=== PATIENT | male | born 1955 | race Caucasian/White ===

== ENCOUNTER 2019-05-12 13:39 | Outpatient (CLI) | payer OTHER, SELFPAY ==
--- NOTE | 2019-05-12 13:21 | DI.US_ITS ---
EXAM: US LOWER EXTREMITY VENOUS RT CLINICAL HISTORY: RT LEG/ANKLE SWELLING, ? DVT TECHNIQUE: Ultrasound performed using standard protocol. COMPARISON: No exams were available for comparison FINDINGS: Duplex venous ultrasound of the right lower extremity was performed according to the usual protocol. Deep drains are freely compressible throughout and there is normal flow augmentation with manual billie f compression. No visible thrombus. No Thornton cyst. No superficial thrombus. IMPRESSION: Negative DVT ultrasound right lower extremity.
== END 2019-05-12 13:59 ==
PROVIDERS: PCP Physician Assistant Surgical; Visit Provider Physician Assistant Surgical
DX: M25.571 Pain in right ankle and joints of right foot (principal); R22.41 Localized swelling, mass and lump, right lower limb; M79.661 Pain in right lower leg
CPT/HCPCS: 93971

== ENCOUNTER 2022-02-05 17:57 | Outpatient (REF) | payer MEDICARE, SELFPAY ==
[2022-02-05 15:54] LABS: ALT 30 U/L (16-63); AST 19 U/L (15-37); Albumin 3.8 g/dL (3.4-5.0); Alkaline Phosphatase 64 U/L (46-116); Anion Gap 7.2 mmol/L (3-11); BUN 16 mg/dL (7-18); Bilirubin, Total 0.7 mg/dL (0.2-1.0); CO2 30.8 mmol/L (21.0-32.0); Calcium 8.9 mg/dL (8.5-10.1); Calculated LDL 152 mg/dL (<100); Chloride 105 mmol/L (98-107); Cholesterol 256 mg/dL (<200); Glucose 96 mg/dL (74-106); HDL Cholesterol 55 mg/dL (40-60); Potassium 4.2 mmol/L (3.5-5.1); Sodium 143 mmol/L (136-145); Total Protein 7.1 g/dL (6.4-8.2); Triglyceride 248 mg/dL (<150)
--- OUTSIDE RECORDS SUMMARY | 2022-02-05 18:03 | XMS_ITS | Encounter Summary ---
:1955 Author Organization [facility] [place] [address] Care Team Providers Name Role Phone None Primary Care Provider Unavailable Reason for Visit Reason Onset Date Comments Medication Refill 08/18/2019 Encounter Details Date Type Department Care Team Description 08/18/2019 Refill Pain and Spine [facility]ong [place] [facility] Eloy Mo PA [facility] [place] [address] [place] [address] [phone] (Wo rk) Social History Tobacco Use Types Packs/Day Years Used Date Never Smoker Smokeless Tobacco: Never Used Sex Assigned at Date Recorded Not on file documented as of this encounter Plan of Treatment Upcoming Encounters Date Type Specialty Care Team Description 04/11/2022 Office Visit Urology Parveen Gonzalez MD [facility] UROLOGSteven [place], [place] [address] (Wo rk) documented as of this encounter Visit Diagnoses Not on filedocumented in this encounter Care Teams Tool Designer Apprentice Relationship Specialty Start Date End Date None PCP - General 03/04/19 None documented as of this encounter
--- OUTSIDE RECORDS SUMMARY | 2022-02-05 18:03 | XMS_ITS | Encounter Summary ---
:1955 Author Organization [facility] [place] [address] Care Team Providers Name Role Phone None Primary Care Provider Unavailable Reason for Visit Reason Comments Follow-up Back Pain Encounter Details Date Type Department Care Team Description 04/23/2019 Office Visit [facility] Eloy Mo S/P lumbar discectomy; at [facility] RAO Da Silva Acute right lumbar radiculopathy [facility] [address] [place], [place] [phone] Social History Tobacco Use Types Packs/Day Years Used Date Never Smoker Smokeless Tobacco: Never Used Sex Assigned at Date Recorded Not on file documented as of this encounter Progress Notes Eloy Mo PA - 04/23/2019 1:40 PM EDT Apollo Ortiz is a 64-year-old gentleman over 8 weeks out from rather significant back pain with right leg pain and paresthesia in the context of some radicular pain from a prior L3-L4 discectomy. Apollo has been doing better than before from when his symptoms began about 2 months ago. He still notices characteristically that during the morning, he is having a lot of difficulties withpain that is fairly sharp on his back and right leg and this can subside after about 20 to 30 minutes of him being able to move around and walk. He tells me even increase his gabapentin to 600 mg at bedtime but even that was not making a massivedifference. Even diclofenac has not been helping him drastically at this point. Otherwise he tells me he was able to play 4 rounds of golf without much difficulty which is a good improvement for him, and he tells me that he actually walks about 6 miles a day now doing to mild sports at the time. We discussed natural history of persistent lumbar radicular pain following a lumbar discectomy. I discussed with Apollo options to manage his symptoms here. We will proceed as follows and plan 1. Discontinue diclofenac and start Celebrex 100 mg once to twice daily as needed 2. Oral steroids have been the most effective for Apollo. We will reserve using this option again oncehe gets close to his trip to [place] in about 3 weeks time. He will also let our office know around the time about refilling his gabapentin so he has enough for his trip. 3. We did discuss contingency of lumbar epidural steroid injection but he would like to hold off on that and I think that is reasonable. I advised him that I am much more pleased by his progress and I hope that he continues to manage well moving forward. documented in this encounter Plan of Treatment Upcoming Encounters Date Type Specialty Care Team Description 04/11/2022 Office Visit Urology Parveen Gonzalez MD [facility] [address], [place] [address] (Wo rk) documented as of this encounter Visit Diagnoses Diagnosis S/P lumbar discectomy Other postprocedural status Acute right lumbar radiculopathy Thoracic or lumbosacral neuritis or radi culitis, unspecified documented in this encounter Care Teams Restoration Officer Relationship Specialty Start Date End Date None PCP - General 03/04/19 None documented as of this encounter
--- OUTSIDE RECORDS SUMMARY | 2022-02-05 18:03 | XMS_ITS | Encounter Summary ---
:1955 Author Organization [facility] [place] [address] Care Team Providers Name Role Phone None Primary Care Provider Unavailable Reason for Visit Reason Onset Date Comments Medication Refill 06/16/2019 Encounter Details Date Type Department Care Team Description 06/16/2019 Refill Pain [facility] Spine [facility]ong [place] [facility] Eloy Mo [place] [address] [place] [address] [phone] (Wo rk) Social History Tobacco Use Types Packs/Day Years Used Date Never Smoker Smokeless Tobacco: Never Used Sex Assigned at Date Recorded Not on file documented as of this encounter Plan of Treatment Upcoming Encounters Date Type Specialty Care Team Description 04/11/2022 Office Visit Urology Parveen Gonzalez MD [facility] UROLOGSteven [place], [place] [address] (Wo rk) documented as of this encounter Visit Diagnoses Not on filedocumented in this encounter Care Teams Customer Resolution Specialist Relationship Specialty Start Date End Date None PCP - General 03/04/19 None documented as of this encounter
--- OUTSIDE RECORDS SUMMARY | 2022-02-05 18:03 | XMS_ITS | Encounter Summary ---
:1955 Author Organization [facility] [place] [address] Care Team Providers Name Role Phone None Primary Care Provider Unavailable Reason for Visit Reason Onset Date Comments Medication Refill 07/08/2019 Encounter Details Date Type Department Care Team Description 07/08/2019 Refill Pain and Spine Raymond chong [place] [facility] Eloy Mo PA [facility] [place] [address] [place] [address] [phone] (Wo rk) Social History Tobacco Use Types Packs/Day Years Used Date Never Smoker Smokeless Tobacco: Never Used Sex Assigned at Date Recorded Not on file documented as of this encounter Plan of Treatment Upcoming Encounters Date Type Specialty Care Team Description 04/11/2022 Office Visit Urology Parveen Gonzalez MD [facility] UROLOGSteven [place], [place] [address] (Wo rk) documented as of this encounter Visit Diagnoses Not on filedocumented in this encounter Care Teams Retort Loader Relationship Specialty Start Date End Date None PCP - General 03/04/19 None documented as of this encounter
--- OUTSIDE RECORDS SUMMARY | 2022-02-05 18:03 | XMS_ITS | Encounter Summary ---
:1955 Author Organization [facility] [place] [address] Care Team Providers Name Role Phone None Primary Care Provider Unavailable Reason for Visit Reason Onset Date Comments Medication Refill 04/07/2019 Encounter Details Date Type Department Care Team Description 04/07/2019 Refill Pain and Spine Raymond chong at [facility] Carolina Dowling, [place] [address] Social History Tobacco Use Types Packs/Day Years Used Date Never Smoker Smokeless Tobacco: Never Used Sex Assigned at Date Recorded Not on file documented as of this encounter Miscellaneous Notes Telephone Encounter - Carolina Dowling, RN - 04/07/2019 10:14 AM EDT Patient returned call as requested yesterday by Anika (Anika had called pt in re to incoming RX request vis [facility]). Explained to pt that we need to talk with him personally prior to doig any refills to clearly understand his dosing, Response, and tolerance. Pt reports he is using 300 mg Gabapentin capsules; he is taking 1 capsule in the AM; 1 capsule mid day, and 2 capsules at HS (the upper limit as authorized by Mr Mo). Pt states this gabapentin dose, combined with his diclofenac is very well tolerated and providing good symptom mgmt. Pt interestedin continuing this dose given its tolerance and effectiveness;. Pt reports having ~ 1 day supply remaining. Informed pt that I would update Eloy; if gabapentin script authorized (as expected) I would call to advise him he is all set. Script pended to be sent electronically to [facility] [place] Call returned to pt advising him that script was sent electronically to his preferred pharmacy as discussed. Pt aware of dosing and med use. documented in this encounter Plan of Treatment Upcoming Encounters Date Type Specialty Care Team Description 04/11/2022 Office Visit Urology Parveen Gonzalez MD [facility] UROLOGSteven [place], [place] [address] (Wo rk) documented as of this encounter Visit Diagnoses Not on filedocumented in this encounter Care Teams Mother Repairer Relationship Specialty Start Date End Date None PCP - General 03/04/19 None documented as of this encounter
--- OUTSIDE RECORDS SUMMARY | 2022-02-05 18:03 | XMS_ITS | Encounter Summary ---
:1955 Author Organization [facility] [place] [address] Care Team Providers Name Role Phone None Primary Care Provider Unavailable Reason for Visit Reason Onset Date Comments Medication Refill 07/08/2019 Encounter Details Date Type Department Care Team Description 07/08/2019 Refill [place] [facility] [place] Mo PA [facility] [place] [address] [place] [address] [phone] (Wo rk) Social History Tobacco Use Types Packs/Day Years Used Date Never Smoker Smokeless Tobacco: Never Used Sex Assigned at Date Recorded Not on file documented as of this encounter Miscellaneous Notes Telephone Encounter - Carolina Dowling RN - 07/08/2019 12:26 PM EST Called pt in response to incoming RX request for Gab[facility]. Advised pt hat I was calling to check in as our records indicated he had a refill of both meds at [facility] in [facility]. Pt acknowledged awareness of those refills but is back in [place] for June. Reviewed notes; advised pt that per Eloy's authorization a 1 mo supply of both meds as requested would be sent to [facility] [place]; that we would leave refills as s at [place] pharmacy so he will have those to fill when he returns to [place]. Pt familiar with med use/dosong' pt advised of timing of script availability. documented in this encounter Plan of Treatment Upcoming Encounters Date Type Specialty Care Team Description 04/11/2022 Office Visit Urology Parveen Gonzalez MD [facility] UROLOGSteven [place], [place] [address] (Wo rk) documented as of this encounter Visit Diagnoses Not on filedocumented in this encounter Care Teams Crating And Moving Estimator Relationship Specialty Start Date End Date None PCP - General 03/04/19 None documented as of this encounter
--- OUTSIDE RECORDS SUMMARY | 2022-02-05 18:03 | XMS_ITS | Clinical Summary ---
:1955 Author Organization [facility] [place] [address] Care Team Providers Name Role Phone None Primary Care Provider Unavailable Allergies No known active allergies Medications Medication Sig Dispensed Refills Start Date End Date Status losartan (COZAAR) 25 mg Take 25 mg by 0 Active Tablet mouth daily. ibuprofen Take 1,200 mg by 0 Act gary (ADVIL;MOTRIN) 200 mg mouth as needed. Tablet multivitamin Take 1 tablet by 0 Active (THERAGRAN) Tablet mouth daily. ascorbic acid (VITAMIN Take 1 tablet by 0 Active C ORAL) mouth daily. cholecalciferol, Take 2,000 Units 0 Active Vitamin D3, (VITAMIN D) by mouth daily. 1,000 unit Tablet alprazolam (XANAX ORAL) Take 0.5 tablets 0 Active by mouth as needed. Patient states that it is 25 mg tablet diclofenac EC Take 1 tablet by 60 tablet 1 08/18/2019 Active (Voltaren) 75 mg mouth 2 times Tablet, Delayed Release daily. (E.C.) Additional Information Patient taking differently: 75 mg Oral DAILY, Reported on 02/11/2020 gabapentin (Neurontin) 300 Take 1 capsule in am; 1 160 capsule 0 08/18/2019 Active mg Capsule capsule mid day; and 2 capsules at HS Additional Information Patient taking differently: 300 mg 2 TIMES DAILY, (No instructions reported), Reported on 02/11/2020 Active Problems Problem Noted Date Low back pain radiating to right lower extremity 03/09 Overview: S/P L3-L4 discectomy by Dr. Christophe Espinosa, on A pril 2018, at [facility]. Social History Tobacco Use Types Packs/Day Years Used Date Never Smoker Smokeless Tobacco: Never Used Sex Assigned at Date Recorded Not on file Last Filed Vital Signs Vital Sign Reading Time Taken Comments Blood Pressure 128/70 02/11/2020 9:54 AM EDT Pulse - - Temperature 36.8 ??C (98.3 ??F) 02/11/2020 9:54 AM EDT Respiratory Rate - - Oxygen Saturation - - Inhaled Oxygen Concentration - - Weight 108.9 kg (240 lb) 02/11/2020 9:54 AM EDT Height 193 cm (6' 4) 02/11/2020 9:54 AM EDT Body Mass Index 29.21 02/11/2020 9:54 AM EDT Plan of Treatment Upcoming Encounters Date Type Specialty Care Team Description 04/11/2022 Office Visit Urology Parveen [facility] [place], [place] [address] (Wo rk) Health Maintenance Due Date Last Done Comments Covid-19 Vaccine (#1) 01/06/1961 Hepatitis C Screening 01/06/1974 Lipid Screening 01/06/1974 Tdap adult 01/06/1975 Tetanus vaccine 01/06/1975 Diabetes Screening (HgbA1C or Glucose) 1996 Colonoscopy 01/06/2001 Zoster vaccine (1 of 2) 01/06/2006 Advance Directive 01/06/2011 Pneumoccocal Vaccine: 65+ (1 - PCV) 01/06/2021 Influenza (Flu) vaccine (1 of 1 - Influenza standard 03/29/2022 series) Insurance Payer Benefit Plan / Subscriber ID Effective Phone Address T ype Group Dates [employer]CIAL [employer]CIAL INS 2019-Prese [phone] [address] [address] GENERIC GENERIC [address] [place] [address] Care Teams Meat Packer Relationship Specialty Start Date End Date None PCP - General 03/04/19 None
--- OUTSIDE RECORDS SUMMARY | 2022-02-05 18:03 | XMS_ITS | Encounter Summary ---
:1955 Author Organization [place] [address] Care Team Providers Name Role Phone None Primary Care Provider Unavailable Reason for Visit Reason Comments Back Pain Right Leg Pain Encounter Details Date Type Department Care Team Description 02/15/2020 Office Visit [facility] Steven Yoon dd, MD Right buttock pain; at [facility] Right lumbar radiculitis; [facility] Dr Sacroiliac dysfunction [address] [phone] (Work) [phone] Social History Tobacco Use Types Packs/Day Years Used Date Never Smoker Smokeless Tobacco: Never Used Sex Assigned at Date Recorded Not on file documented as of this encounter Last Filed Vital Signs Vital Sign Reading [...] Mass Index 29.21 02/11/2020 9:54 AM EDT documented in this encounter Progress Notes Xavier Yoon MD - 02/15/2020 3:00 PM EDT Chief Complaint Patient presents with ??? Back Pain ??? Right Leg Pain Subjective: Apollo Ortiz is a 65 y.o. male who is self-referred for follow-up and for Physical Medicine and Rehabilitation evaluation. The clinical office note of RAO Eagle, dated 04/23/2019, is reviewed. The patient was doing well and was in his usual state of health until May 2018 when he played around of golf at [place] in 32 degree weather and then returned to his [place] home to shovel lotsof snow. This led to the development of right sciatica. The patient sought treatment in [place] and, in October 2018, underwent right L3- L4 discectomy. He states that the procedure led to complete resolution of right sciatica. Shortly after surgery, however, he sat down on a sofa and felt the acute recurrence of right lower extremity pain radiation. He recalls a funny bone feeling in the right buttock. Right lower extremity pain was managed non-surgically. The patient sought consultation with Mr. Mo last March, shortly after he experienced a further increase in right lower extremity pain after receiving manual therapy/traction to his lower extremities in physical therapy. He ultimately experienced satisfactory pain relief with the combination of Celebrex and gabapentin. He was provided with oral steroids kept in reserve, although it is my understanding that he has nothad to use them. The patient contacted this office to seek additional care in December after he began to experience pain with sitting. Primary symptoms: Right medial buttock pain with radiation into right posterior thigh. He reports pain in the posterior aspect of the right thigh or deep to the thigh with extended periods of driving since July 2019. Additional symptoms include [id number]-[id number] sensation throughout the right thigh with ambulation and intermittent right foot numbness, involving the ball of the foot or the lateral plantar surface. Right foot sensory symptoms have been occurring since sometime before surgery and areconsistently associated with the first weightbearing of the day. Pain characteristics: Intermittent and dull in quality. There is no pain at present. Pain is worst when getting out of bed in the morning and consistently resolves after ambulating for 10 minutes each morning. Exacerbating factors: Driving, right lower extremity weightbearing each morning, right side-lying and turning over in bed. Pain is also increased by whole-body motion, as when practicing a golf swing. He can experience pain of delayed onset with forward flexion or lifting. Alleviating factors: Ambulation. Lower extremity pain radiation and sensory symptoms are noted, as above. Patient denies focal lower extremity weakness, bowel/bladder dysfunction or gait/balance impairment. Current treatment includes gabapentin twice daily and diclofenac. He has had no recent physical therapy, although he found MDT to be helpful early in his course. Additional symptoms include right knee pain and swelling. The symptoms developed last week, seemingly after kneeling. Pertinent past history is as noted above. He recalled having a remote disc herniation with right sciatica. This responded well to a combination of PT treatment and an unspecified injection. No past medical history on file. Past Surgical History: Procedure Laterality Date ??? LUMBAR DISCECTOMY Right 10/2018 L3-L4 No family history on file. Social History Tobacco Use ??? Smoking status: Never Smoker ??? Smokeless tobacco: Never Used Substance Use Topics ??? Alcohol use: Not on file ??? Drug use: Not on file Current Outpatient Medications on File Prior to Visit Medication Sig Dispense Refill ??? diclofenac EC (Voltaren) 75 mg Tablet, Delayed Release (E.C.) Take 1 tablet by mouth 2 times daily. (Patient taking differently: Take 75 mg by mouth daily.) 60 tablet 1 ??? gabapentin (Neurontin) 300 mg Capsule Take 1 capsule in am; 1 capsule mid day; and 2 capsules atHS (Patient taking differently: 300 mg 2 times daily.) 160 capsule 0 ??? losartan (COZAAR) 25 mg Tablet Take 25 mg by mouth daily. ??? ibuprofen (ADVIL;MOTRIN) 200 mg Tablet Take 1,200 mg by mouth as needed. ??? multivitamin (THERAGRAN) Tablet Take 1 tablet by mouth daily. ??? ascorbic acid (VITAMIN C ORAL) Take 1 tablet by mouth daily. ??? cholecalciferol, Vitamin D3, (VITAMIN D) 1,000 unit Tablet Take 2,000 Units by mouth daily. ??? alprazolam (XANAX ORAL) Take 0.5 tablets by mouth as needed. Patient states that it is 25 mg tablet No current facility-administered medications on file prior to visit. No Known Allergies Review of Systems: A comprehensive review of systems was negative except for: as noted above. Objective: BP 128/70 Temp 36.8 ??C (98.3 ??F) Ht 193 cm (6' 4) Wt 108.9 kg (240 lb) BMI 29.21 kg/m?? Well-developed and well-nourished male in no apparent distress. Respiratory effort normal and unlabored. Skin of the lower extremities intact. No rashes observed. Lower extremities warm and well perfused. Pedal pulses 2+ and palpable bilaterally. Alert and oriented x3. Affect is appropriate. Veronique's signs are absent. Gait and station: Gait is nonantalgic. Patient exhibits overpronation bilaterally. There is no difficulty performing bilateral heel or toe walking. Hips and knees are mildly flexed in standing. Lumbar motion: Lumbosacral excursion is limited to 3 cm on modified Dada's testing. There is no pain with active lumbar flexion or extension and no pain with facet loading maneuvers. Pelvic alignment/motion: Standing iliac crest palpation is elevated on the right. Sitting and standing flexion tests are positive on the right. There is apparent lengthening of right lower extremity with supine/long sitting. Palpation: No focal tenderness throughout the lumbar or lumbopelvic regions. LE flexibility: Tightness present in bilateral hamstrings, iliotibial bands, rectus femoris and lefthip flexors. Pelvic/SI provocation: There is no pain with pelvic compression or shear. MILTON is negative bilaterally. Motor: Bilateral hip abductors 4/5 right, 4- to 4/5 left. Lower extremity motor examination otherwise 5/5 throughout. Sensation: Intact to light touch throughout the lower extremities. Straight leg raising: Negative bilaterally in the sitting and supine positions. Muscle stretch reflexes: 2+ bilaterally for quadriceps and unobtainable for Achilles tendon. Tone normal throughout the lower extremities. No ankle clonus. Imaging: The patient last underwent lumbar MRI on 08/04/2019. This demonstrates no evidence of new or recurrentfocal disc herniation. There is marked disc space narrowing at L5-S1 with associated endplate degenerative changes and bilateral lower lumbar facet arthropathy. Assessment: Encounter Diagnoses Name Primary? Right buttock pain ??? Right lumbar radiculitis ??? Sacroiliac dysfunction The patient is a 65-year-old male who is now 15 months out from right L3-L4 laminectomy and discectomy. He reports persistent right buttock and posterior thigh pain since shortly after the procedure. There is no evidence of recurrent disc herniation on lumbar imaging. I can appreciate no lumbar radicular signs on examination. I question the presence of a mechanical component to the patient's pain, given the consistent association of pain and sensory symptoms in the right lower extremity with the first weightbearing of the day. He exhibits clinical evidence of sacroiliac mechanical dysfunction, but there is no evidence of focal tenderness or localizing pain to provocative stress maneuvers to support a sacroiliac source forhis symptoms. I am hesitant to consider manual therapy for treatment of sacroiliac dysfunction, given his history of a right lower extremity pain flare following such treatment in the past. We discussed the potential clinical utility of diagnostic/therapeutic sacroiliac joint steroid injection. The etiology of the patient's ongoing right lower extremity symptoms is not clear. I recommend electrodiagnostic testing to evaluate for acute or chronic lumbosacral radiculopathy or plexopathy. Clinically appropriate treatment can then flow from those results. The patient stated that he would like toconsider this recommendation further before proceeding. We discussed potential referral to [facility] for such testing, but the patient thinks that he would like to have the study closer to home. Plan: 1. Patient to contact me if he would like to proceed with the recommended lower extremity electrodiagnostic testing. 2. Follow-up here on an as-needed basis. Greater than 50% of today's 60-minute visit was spent in counseling and coordination of care. Xavier Yoon MD, MS 02/15/2020 Soraida Chand LNA - 02/15/2020 3:00 PM EDT Confirmed with pt that a detailed line by line medication and allergy review was performed by Soraida Chand as documented on 02/12/20 as part of the telephone Intake process. Confirmed with pt that there have been no medication/allergy additions or changes over the previous 3 days. documented in this encounter Plan of Treatment Upcoming Encounters Date Type Specialty Care Team Description 04/11/2022 Office Visit Parveen Valentine MD [facility] [address] [place], [place] [address] (Wo rk) documented as of this encounter Visit Diagnoses Diagnosis Right buttock pain Mylagia and myositis, unspecified Right lumbar radiculitis Thoracic or lumbosacral neuritis or radi culitis, unspecified Sacroiliac dysfunction Disorders of sacrum documented in this encounter Care Teams Public Housing Manager Relationship Specialty Start Date End Date None PCP - General 03/04/19 None documented as of this encounter
--- OUTSIDE RECORDS SUMMARY | 2022-02-05 18:03 | XMS_ITS | Encounter Summary ---
:1955 Author Organization [place] [address] Care Team Providers Name Role Phone None Primary Care Provider Unavailable Reason for Visit Reason Onset Date Comments Medication Refill 07/06/2019 Encounter Details Date Type Department Care Team Description 07/06/2019 Refill Pain and Spine Raymond chong at [facility] Eloy Mo PA [facility] [place] [address] [place] [address] [phone] (Wo rk) Social History Tobacco Use Types Packs/Day Years Used Date Never Smoker Smokeless Tobacco: Never Used Sex Assigned at Date Recorded Not on file documented as of this encounter Plan of Treatment Upcoming Encounters Date Type Specialty Care Team Description 04/11/2022 Office Visit Urology Parveen Gonzalez MD [facility] UROLOGSteven [place], [place] [address] (Wo rk) documented as of this encounter Visit Diagnoses Not on filedocumented in this encounter Care Teams Safemaker Relationship Specialty Start Date End Date None PCP - General 03/04/19 None documented as of this encounter
--- OUTSIDE RECORDS SUMMARY | 2022-02-05 18:03 | XMS_ITS | Encounter Summary ---
:1955 Author Organization [place] [address] Care Team Providers Name Role Phone None Primary Care Provider Unavailable Encounter Details Date Type Department Care Team Description 05/12/2019 Telephone [facility] at Eloy Mo PA [id number] [place] [address] [phone] Social History Tobacco Use Types Packs/Day Years Used Date Never Smoker Smokeless Tobacco: Never Used Sex Assigned at Date Recorded Not on file documented as of this encounter Miscellaneous Notes Telephone Encounter - Eloy Mo PA - 05/12/2019 4:43 PM EDT Apollo Pedrodionne and myself had a brief conversation earlier today around noontime to discuss his recent pictures showing the swelling happening on his right ankle and also appears to extend down his distal lower leg with a noted difference in the circumference of his right leg compared to his left leg.I advised Codey that I was concerned about this as the prior finding of numbness was most associated to his foot and distal ankle but now it appears to extend further down into his lower leg. I advised Apollo that we want to rule out a more life-threatening issue just a DVT so I strongly recommend that he obtain an ultrasound of the right lower extremity. He finds it difficult to have the study performed at our facility due to the location being far away but [facility] We will plan on requesting the results of that ultrasound after he is completed and informing Codey afterwards if this process further concern. documented in this encounter Plan of Treatment Upcoming Encounters Date Type Specialty Care Team Description 04/11/2022 Office Visit Urology Parveen Gonzalez MD [facility] UROLOGSteven [place], [place] [address] (Wo rk) documented as of this encounter Visit Diagnoses Diagnosis Swelling of right lower extremity Swelling of limb documented in this encounter Care Teams Fishing Rod Marker Relationship Specialty Start Date End Date None PCP - General 03/04/19 None documented as of this encounter
--- OUTSIDE RECORDS SUMMARY | 2022-02-05 18:03 | XMS_ITS | Encounter Summary ---
:1955 Author Organization [facility] [place] [address] Care Team Providers Name Role Phone None Primary Care Provider Unavailable Reason for Visit Reason Onset Date Comments Medication Refill 04/06/2019 Encounter Details Date Type Department Care Team Description 04/06/2019 Refill DH Eloy Hernandez PA [facility] [address] [place] [address] [phone] (Wo rk) Social History Tobacco Use Types Packs/Day Years Used Date Never Smoker Smokeless Tobacco: Never Used Sex Assigned at Date Recorded Not on file documented as of this encounter Plan of Treatment Upcoming Encounters Date Type Specialty Care Team Description 04/11/2022 Office Visit Urology Parveen Gonzalez MD [facility] ER UROLOGSteven [place], [place] [address] (Wo rk) documented as of this encounter Visit Diagnoses Not on filedocumented in this encounter Care Teams [place] Cutting Machine Operator Relationship Specialty Start Date End Date None PCP - General 03/04/19 None documented as of this encounter
--- OUTSIDE RECORDS SUMMARY | 2022-02-05 18:03 | XMS_ITS | Encounter Summary ---
:1955 Author Organization [facility] [place] [address] Care Team Providers Name Role Phone None Primary Care Provider Unavailable Reason for Visit Reason Onset Date Comments Other 05/12/2019 Encounter Details Date Type Department Care Team Description 05/12/2019 Telephone [facility] Sp[facility] at Jono Gr RN [facility] [place] [address] Social History Tobacco Use Types Packs/Day Years Used Date Never Smoker Smokeless Tobacco: Never Used Sex Assigned at Date Recorded Not on file documented as of this encounter Miscellaneous Notes Telephone Encounter - Michael Gr RN - 05/12/2019 5:07 PM EDT Received faxed report with result of lower extremity ultrasound to r/o DVT, report reviewed by [facility] Eagle and patient was informed that result was negative for DVT in right lower extremity. documented in this encounter Plan of Treatment Upcoming Encounters Date Type Specialty Care Team Description 04/11/2022 Office Visit Urology Parveen Gonzalez MD [facility] ER UROLOGSteven [place], [place] [address] (Wo rk) documented as of this encounter Visit Diagnoses Not on filedocumented in this encounter Care Teams Lawn Service Manager Relationship Specialty Start Date End Date None PCP - General 03/04/19 None documented as of this encounter
--- OUTSIDE RECORDS SUMMARY | 2022-02-05 18:03 | XMS_ITS | Encounter Summary ---
:1955 Author Organization [facility] [address] Care Team Providers Name Role Phone None Primary Care Provider Unavailable Encounter Details Date Type Department Care Team Description 05/12/2019 Orders Only Pain [facility] Spine Center Eloy Mo, Swelling of right at [facility] PA lower extremity [facility] [place] [address] [place] [id number] [phone] Social History Tobacco Use Types Packs/Day Years Used Date Never Smoker Smokeless Tobacco: Never Used Sex Assigned at Date Recorded Not on file documented as of this encounter Plan of Treatment Upcoming Encounters Date Type Specialty Care Team Description 04/11/2022 Office Visit Urology Parveen Gonzalez MD [facility] ER UROLOGSteven [place], [place] [address] (Wo rk) documented as of this encounter Visit Diagnoses Diagnosis Swelling of right lower extremity Swelling of limb documented in this encounter Care Teams Teamcenter Consultant Relationship Specialty Start Date End Date None PCP - General 03/04/19 None documented as of this encounter
--- OUTSIDE RECORDS SUMMARY | 2022-02-05 18:04 | XMS_ITS | Encounter Summary ---
:1955 Author Organization [facility] [place] [address] Care Team Providers Name Role Phone None Primary Care Provider Unavailable Encounter Details Date Type Department Care Team Description 03/12/2019 Telephone Pain and Spine Center at [place] Saini LPN [facility] [place] [address] Social History Tobacco Use Types Packs/Day Years Used Date Never Smoker Smokeless Tobacco: Never Used Sex Assigned at Date Recorded Not on file documented as of this encounter Miscellaneous Notes Telephone Encounter - Juliette Saini LPN - 03/12/2019 3:25 PM EDT Apollo called requesting additional medication he is benefiting from the Prednisone 9 day course. Mr Mo agrees to refill this or give Diclofenac 75 mg BID. He chose the Prednisone. Script sent to [facility] in [place], [place] as requested. documented in this encounter Plan of Treatment Upcoming Encounters Date Type Specialty Care Team Description 04/11/2022 Office Visit Urology Parveen Gonzalez MD [facility] ER UROLOGSteven [place], [place] [address] (Wo rk) documented as of this encounter Visit Diagnoses Not on filedocumented in this encounter Care Teams Missile And Missile Checkout Technician Relationship Specialty Start Date End Date None PCP - General 03/04/19 None documented as of this encounter
--- OUTSIDE RECORDS SUMMARY | 2022-02-05 18:04 | XMS_ITS | Encounter Summary ---
:1955 Author Organization [facility] [place] [address] Care Team Providers Name Role Phone None Primary Care Provider Unavailable Reason for Visit Reason Comments Back, Buttock, Leg Pain Encounter Details Date Type Department Care Team Description 04/01/2019 Office Visit Pain and Spine Center Celena Mcclain Lo w back pain at [facility] PT radiating to right [facility] [place] [address] Social History Tobacco Use Types Packs/Day Years Used Date Never Smoker Smokeless Tobacco: Never Used Sex Assigned at Date Recorded Not on file documented as of this encounter Progress Notes Celena Mcclain PT - 04/01/2019 10:00 AM EDT Spine Center Physical Therapy Note Referring Provider: RAO Eagle Diagnosis: 1. Low back pain radiating to right lower extremity 2. S/P L3-L4 laminectomy by Dr. Christophe Espinosa, on November 10, 2018, at [facility]. Date of Onset: December 2018 Work Status and Occupation: Owns and manages a construction company; at work Subjective: Mr. Ortiz reports his pain continues to gradually improve and the home exercise program has been going well. He has many questions regarding medications which he was asked to direct to [facility]O Eagle.. He is now walking 60 minutes 1 time per day and then to shorter walks.. Mr. Ortiz currently complains of intermittent low back pain radiating rarely to the right buttock and down the posterior aspect of the thigh to the knee. There is numbness in the lateral aspect of the rightthigh but no weakness. The pain is rated 0/10 at its least and 3/10 at its worst. Symptoms worsen when bending, sitting on a hard surface, and lifting. Symptoms ease when lying in the supine position, standing, and walking. Sleep is no longer disturbed. Functionally, he is able to sit 60 minutes, walk60 minutes, and has no difficulty standing for prolonged periods of time Objective: Mr. Ortiz returns today for a scheduled follow up appointment. He moves about in the exam room with the and appears comfortable while seated. Sitting and standing posture is good. Activerange of motion of the lumbar spine is limited to 50 degrees flexion and 20 degrees extension. Endrange flexion worsens the low back and right lower extremity symptoms. Gait is unremarkable. He is ableto heel/toe walk and squat fully. Sciatic nerve tension test on the right reproduces the radicular pain at 50 degrees. Sciatic nerve tension test on the left is negative at 60 degrees. Abdominal and trunk extensor strength is 4/5. Repeated movement testing of the lumbar spine did seem to suggest a dire ctional preference toward extension. Treatment Received: Discussed the natural history of healing following a lumbar and the rational forexercise based treatment. Patient Education/ Home Exercise Program: Reviewed and modified Mr. Ortiz's home exercise program. The home exercise program now includes flexion in lying, trunk rotation in supine, supine sciatic nerve self mobilization, pelvic tilt, bridging, alternate arm and leg lift in prone, active extensionin prone, extension in lying with a sag, single leg stance 1-2 times per day and extension in standing as needed throughout the day. He was strongly encouraged to continue to gradually progress his walking program. Assessment: Mr. Mendozas symptoms and range of motion has improved and he is independent with a home exercise program. Goals: 1. Independent with home exercise program Goal met 2. Able to sit without discomfort Making progress toward goal 3. Able to bend without discomfort Goal met Plan: Follow up as needed only. Mr. Ortiz was encouraged to call with any questions or concerns regarding todays visit or the home exercise program. Length of visit: A total of 25 minutes was spent re-assessing, treating, and instructing Apollo Ortiz in a home exercise program. documented in this encounter Plan of Treatment Upcoming Encounters Date Type Specialty Care Team Description 04/11/2022 Office Visit Urology Parveen Gonzalez MD [facility] UROLOGSteven [place], [place] [address] (Wo rk) documented as of this encounter Visit Diagnoses Diagnosis Low back pain radiating to right lower e xtremity documented in this encounter Care Teams Automation Qtp Tester Relationship Specialty Start Date End Date None PCP - General 03/04/19 None documented as of this encounter
--- OUTSIDE RECORDS SUMMARY | 2022-02-05 18:04 | XMS_ITS | Encounter Summary ---
:1955 [place] [address] Care Team Providers Name Role Phone Unavailable Primary Care Provider Unavailable Encounter Details Date Type Department Care Team Description 09/03/2018 Ancillary Procedure [facility] [place] [address] [place] [address] [phone] (Wo rk) Social History Tobacco Use Types Packs/Day Years Used Date Never Assessed Sex Assigned at Date Recorded Not on file documented as of this encounter Plan of Treatment Upcoming Encounters Date Type Specialty Care Team Description 04/11/2022 Office Visit Urology Parveen Gonzalez MD [facility] ER UROLOGSteven [place] [address] (Wo rk) documented as of this encounter Procedures Procedure Name Priority Date/Time Associated Diagnosis Comme nts FILM LIBRARY Routine 09/03/2018 12:00 AM Results for this STORAGE ONLY MR EST procedure ar e in SPINE the results section. documented in this encounter Results Film Library- Storage Only MR Spine (09/03/2018 12:00 AM EST) Specimen (Source) Anatomical Location Collection Method / Collectio n Time Received Time / Laterality Volume Narrative ALEX - 03/04/2019 2:28 PM EDT This exam is auto-finalizing. It's purpo se is for storage only. Johnson Ball APRN IMG FILM LIBRARY ORDERABLES Performing Organization Address City/State/ZIP Code Phon e Number [facility] [place], [place] documented in this encounter Visit Diagnoses Not on filedocumented in this encounter
--- OUTSIDE RECORDS SUMMARY | 2022-02-05 18:04 | XMS_ITS | Encounter Summary ---
:1955 Author Organization [place] [address] Care Team Providers Name Role Phone None Primary Care Provider Unavailable Reason for Referral Diagnostic Test (Routine) - Specialty Diagnoses / Procedures Referred By Contact Refer red To Contact Procedures [facility] Pain And Spine MRI Lumbar Spine wo Contrast [facility] (Generic) [place] [address] Referral ID Status Reason Start Date Expiration Visits Visits Date Requested Authorized [id number] Specialty 03/06/2019 09/02/2019 1 1 Service Requested Encounter Details Date Type Department Care Team Description 03/06/2019 External Results [facility] Sp[facility] at Provider, Jake doyle [facility] [place]guy[address] [address] Social History Tobacco Use Types Packs/Day Years Used Date Never Smoker Smokeless Tobacco: Never Used Sex Assigned at Date Recorded Not on file documented as of this encounter Plan of Treatment Upcoming Encounters Date Type Specialty Care Team Description 04/11/2022 Office Visit Urology Parveen Gonzalez MD [facility] ER UROLOGSteven [place], [place] [address] (Wo rk) documented as of this encounter Procedures Procedure Name Priority Date/Time Associated Diagnosis Comme nts MRI LUMBAR SPINE Routine 09/03/2018 Results for this WITHOUT CONTRAST procedure a re in the results section . documented in this encounter Results MRI Lumbar Spine wo Contrast (Generic) (09/03/2018) Anatomical Region Laterality Modality L-spine Magnetic Resonance Narrative This result has an attachment that is no t available. Historical Provider IMG MRI ORDERABLES documented in this encounter Visit Diagnoses Not on filedocumented in this encounter Care Teams Long Distance Billing Operator Relationship Specialty Start Date End Date None PCP - General 03/04/19 None documented as of this encounter
--- OUTSIDE RECORDS SUMMARY | 2022-02-05 18:04 | XMS_ITS | Encounter Summary ---
:1955 Author Organization [facility] [place] [address] Care Team Providers Name Role Phone None Primary Care Provider Unavailable Reason for Referral Diagnostic Test (Routine) - Closed Specialty Diagnoses / Procedures Referred By Contact Refer red To Contact Radiology Diagnoses S/P lumbar discectomy Acute right lumbar radiculopathy Eloy Mo PA [facility] Rad Mri Procedures MRI Lumbar [place] [address] [place] [address] Phone: Referral ID Status Reason Start Date Expiration Date Visits V isits Requested Authorized [id number] Closed Specialty 03/04/2019 03/03/2020 1 1 Service Requested Reason for Visit Diagnostic Test (Routine) - Closed Specialty Diagnoses / Procedures Referred By Contact Refer red To Contact Radiology Diagnoses S/P lumbar discectomy Acute right lumbar radiculopathy Eloy Mo PA [facility] Rad Mri Procedures MRI Lumbar [place] [address] [place] [address] Phone: Referral ID Status Reason Start Date Expiration Date Visits V isits Requested Authorized [id number] Closed Specialty 03/04/2019 03/03/2020 1 1 Service Requested Encounter Details Date Type Department Care Team Description 03/06/2019 Hospital Encounter MRI at [facility] Yoel Noland, S/P lumbar discectomy; [facility] Acute right lumbar radiculopathy [address] [place] CENTER [address] SPINE CENTER [phone] [place] [address] Social History Tobacco Use Types Packs/Day Years Used Date Never Smoker Smokeless Tobacco: Never Used Sex Assigned at Date Recorded Not on file documented as of this encounter Medications at Time of Discharge Medication Sig Dispensed Refills Start Date End Date losartan (COZAAR) 25 mg Take 25 mg by 0 Tablet mouth daily. ibuprofen (ADVIL;MOTRIN) Take 1,200 mg by 0 200 mg Tablet mouth as needed. multivitamin (THERAGRAN) Take 1 tablet by 0 Tablet mouth daily. ascorbic acid (VITAMIN C Take 1 tablet by 0 ORAL) mouth daily. cholecalciferol, Vitamin Take 2,000 Units 0 D3, (VITAMIN D) 1,000 unit by mouth daily. Tablet alprazolam (XANAX ORAL) Take 0.5 tablets 0 by mouth as needed. Patient states that it is 25 mg tablet predniSONE (DELTASONE) 20 Take 3 tablets 18 tablet 0 201803/12/2019 mg Tablet daily for 3 days, then 2 tablets daily for 3 days, then 1 tablet daily for 3 days. cyclobenzaprine (FLEXERIL) Take 1 tablet by 20 tablet 0 03/201904/23/2019 5 mg Tablet mouth nightly as needed. gabapentin (NEURONTIN) 300 Take 1 capsule by 60 capsule 0 03/23/2019 mg Capsule mouth 3 times daily. documented as of this encounter Plan of Treatment Upcoming Encounters Date Type Specialty Care Team Description 04/11/2022 Office Visit Urology Parveen Gonzalez MD [facility] ER UROLOGY [place], [place] [address] (Wo rk) documented as of this encounter Procedures Procedure Name Priority Date/Time Associated Diagnosis Comme nts MRI LUMBAR SPINE Routine 03/06/2019 10:09 S/P lumbar dis cectomy Results for this WITH/WO CONTRAST AM EDT Acute right lumbar proce dure are in radiculopathy the results section. documented in this encounter Results MRI Lumbar Spine wwo Contrast (03/06/2019 10:09 AM EDT) Anatomical Region Laterality Modality L-spine Magnetic Resonance Specimen (Source) Anatomical Location Collection Method / Collectio n Time Received Time / Laterality Volume Impressions 03/06/2019 11:18 AM EDT No evidence of free disc fragment status post L3-L4 partial discectomy. A small amount of postsurgical granulation/ scar material is present ventrally at the L3-L4 level. No abnormal nerve root enha ncement. Comment: The Following Findings Are So C ommon In People Without Low Back Pain That While We Report Their Presence, The y Must Be Interpreted With Caution And In Context Of The Clinical Situation (Re alyse- Juan Diegok Et Al, Spine 2001). Findings: (Prevalence In Patients Withou t Low Back Pain), Disc Degeneration (Decreased T2 Signal, Height Loss, Bulge ) (91%), Disc T2-Signal Loss (83%), Disc Height Loss (56%), Disc Bulge (64%), Dis c Protrusion (32%), Annular Fissure (38%). Thank you for letting us participate in the care of this patient. For questions regarding this report, please contact th e number below. ? Narrative 03/06/2019 11:18 AM EDT EXAMINATION: MRI LUMBAR SPINE WWO CONTRAST CLINICAL HISTORY: Back and right leg mar n, with prior right L3-L4 discectomy x October 2018, assess for recurrent HNP. TECHNIQUE: MRI of the lumbar spine was performed be fore and after the intravenous administration of 22cc Dotarem. COMPARISON: MRI of the lumbar spine 12/12/2018 FINDINGS: There is a millimeter of L2 on L3 retrol isthesis. Other than mild endplate irregularities, vertebral body height is maintained. Regional bone marrow signal intensity is heterogeneous, similar to p rior. There is loss of disc height and disc si gnal, most pronounced at T12-L1 and L5-S1. Endplate reactive changes also pr esent at these levels. The conus terminates at the level of the L1 inferi or endplate. The patient is status post right-sided L 3 hemilaminectomy. There is a thin semicircular focus of en hancing soft tissue material which contributes to effacement of the ventral aspect of the thecal sac at L3-L4 as well as in the right L3 post laminectomy bed. No abnormal fluid collection. No other area of abnormal enhancement. No abdominal aortic aneurysm. T12-L1: Disc height loss and small disc bulge are present. No significant central canal stenosis or neural foramin al narrowing. L1-L2: No central canal stenosis or neur al foraminal narrowing. L2-L3: Small disc bulge and mild bilater al facet arthropathy along with redundancy of ligamentum flavum result i n indentation of the thecal sac without significant central canal stenosis. No n eural foraminal narrowing. L3-L4: Disc bulge with superimposed cent ral disc protrusion a right paracentral annular fissure along with mild bilatera l facet arthropathy. The patient is status post right-sided hemilaminectomy at the L3 level. No central canal stenosis. The previously seen extruded d isc material is no longer present. L4-L5: Moderate bilateral facet arthropa thy and very small disc bulge with a right foraminal annular fissure are pres ent. This results in indentation of the thecal sac without significant central c anal stenosis. There is mild right-sided neural foraminal and subarticular recess narrowing. No left-sided neural foraminal narrowing. L5-S1: Mild bilateral facet arthropathy. Near complete loss of disc height. No central canal stenosis or neural foramin al narrowing. Procedure Note Lico Enriquez MD - 08/09/2019Formattin g of this note might be different from the original. EXAMINATION: MRI LUMBAR SPINE WWO CONTRA ST CLINICAL HISTORY: Back and right leg mar n, with prior right L3-L4 discectomy x October 2018, assess for recurrent HNP. TECHNIQUE: MRI of the lumbar spine was performed be fore and after the intravenous administration of 22cc Dotarem. COMPARISON: MRI of the lumbar spine 12/12/2018 FINDINGS: There is a millimeter of L2 on L3 retrol isthesis. Other than mild endplate irregularities, vertebral body height is maintained. Regional bone marrow signal intensity is heterogeneous, similar to p rior. There is loss of disc height and disc si gnal, most pronounced at T12-L1 and L5-S1. Endplate reactive changes also pr esent at these levels. The conus terminates at the level of the L1 inferi or endplate. The patient is status post right-sided L 3 hemilaminectomy. There is a thin semicircular focus of en hancing soft tissue material which contributes to effacement of the ventral aspect of the thecal sac at L3-L4 as well as in the right L3 post laminectomy bed. No abnormal fluid collection. No other area of abnormal enhancement. No abdominal aortic aneurysm. T12-L1: Disc height loss and small disc bulge are present. No significant central canal stenosis or neural foramin al narrowing. L1-L2: No central canal stenosis or neur al foraminal narrowing. L2-L3: Small disc bulge and mild bilater al facet arthropathy along with redundancy of ligamentum flavum result i n indentation of the thecal sac without significant central canal stenosis. No n eural foraminal narrowing. L3-L4: Disc bulge with superimposed cent ral disc protrusion a right paracentral annular fissure along with mild bilatera l facet arthropathy. The patient is status post right-sided hemilaminectomy at the L3 level. No central canal stenosis. The previously seen extruded d isc material is no longer present. L4-L5: Moderate bilateral facet arthropa thy and very small disc bulge with a right foraminal annular fissure are pres ent. This results in indentation of the thecal sac without significant central c anal stenosis. There is mild right-sided neural foraminal and subarticular recess narrowing. No left-sided neural foraminal narrowing. L5-S1: Mild bilateral facet arthropathy. Near complete loss of disc height. No central canal stenosis or neural foramin al narrowing. IMPRESSION No evidence of free disc fragment status post L3-L4 partial discectomy. A small amount of postsurgical granulation/ scar material is present ventrally at the L3-L4 level. No abnormal nerve root enha ncement. Comment: The Following Findings Are So C ommon In People Without Low Back Pain That While We Report Their Presence, The y Must Be Interpreted With Caution And In Context Of The Clinical Situation (Re dale Trivedi Et Al, Spine 2001). Findings: (Prevalence In Patients Withou t Low Back Pain), Disc Degeneration (Decreased T2 Signal, Height Loss, Bulge ) (91%), Disc T2-Signal Loss (83%), Disc Height Loss (56%), Disc Bulge (64%), Dis c Protrusion (32%), Annular Fissure (38%). Thank you for letting us participate in the care of this patient. For questions regarding this report, please contact e number below. Yoel Noland MD IMG MRI ORDERABLES documented in this encounter Visit Diagnoses Diagnosis S/P lumbar discectomy Other postprocedural status Acute right lumbar radiculopathy Thoracic or lumbosacral neuritis or radi culitis, unspecified documented in this encounter Administered Medications Inactive Administered Medications - up to 3 most recent administrations Medication Order MAR Action Action Date Dose Rate Site gadoterate meglumine (DOTAREM) 0.5 Given 03/06/2019 9:48 AM EDT 22 mLs mmol/mL (376.9 mg/mL) injection 0-100 mL 0-100 mL, Intravenous, ONCE PRN, 1 dose, Starting on Sat03/06/19 at 0949, Until Sat03/06/19 at 0948, Per Protocol, Radiology Contrast, Routine documented in this encounter Care Teams Biological Technician Relationship Specialty Start Date End Date None PCP - General 03/04/19 None documented as of this encounter
--- OUTSIDE RECORDS SUMMARY | 2022-02-05 18:04 | XMS_ITS | Encounter Summary ---
:1955 Author Organization [facility] [address] Care Team Providers Name Role Phone None Primary Care Provider Unavailable Reason for Referral Diagnostic Test (Routine) - Specialty Diagnoses / Procedures Referred By Contact Refer red To Contact Procedures [facility] Pain And Spine MRI Lumbar [place] [address] Referral ID Status Reason Start Date Expiration Visits Visits Date Requested Authorized [id number] Specialty 03/06/2019 09/02/2019 1 1 Service Requested Encounter Details Date Type Department Care Team Description 03/06/2019 External Results [facility] [place] [address] Social History Tobacco Use Types Packs/Day Years Used Date Never Smoker Smokeless Tobacco: Never Used Sex Assigned at Date Recorded Not on file documented as of this encounter Plan of Treatment Upcoming Encounters Date Type Specialty Care Team Description 04/11/2022 Office Visit Urology Parveen Gonzalez MD [facility] ER UROLOGSteven [place], [place] [address] (Wo rk) documented as of this encounter Procedures Procedure Name Priority Date/Time Associated Diagnosis Comme nts MRI LUMBAR SPINE Routine 12/12/2018 Results for this WITH/WO CONTRAST procedure a re in the results section . documented in this encounter Results MRI Lumbar Spine wwo Contrast (12/12/2018) Anatomical Region Laterality Modality L-spine Magnetic Resonance Narrative This result has an attachment that is no t available. Historical Provider IMG MRI ORDERABLES documented in this encounter Visit Diagnoses Not on filedocumented in this encounter Care Teams Back Tacker Relationship Specialty Start Date End Date None PCP - General 03/04/19 None documented as of this encounter
--- OUTSIDE RECORDS SUMMARY | 2022-02-05 18:04 | XMS_ITS | Encounter Summary ---
:1955 [place] [address] Care Team Providers Name Role Phone None Primary Care Provider Unavailable Reason for Visit Reason Onset Date Comments Medication Refill 03/23/2019 Encounter Details Date Type Department Care Team Description 03/23/2019 Refill Spine Center at [facility] Eloy Mo PA [facility] [place] [address] [place] [address] [phone] (Wo rk) Social History Tobacco Use Types Packs/Day Years Used Date Never Smoker Smokeless Tobacco: Never Used Sex Assigned at Date Recorded Not on file documented as of this encounter Miscellaneous Notes Telephone Encounter - Eloy Mo PA - 03/23/2019 9:11 AM EDT From: Aopllo Angel Sent: 03/23/2019 8:50 AM EDT Subject: Medication Renewal Request Apollo Penacarlosmisbah would like a refill of the following medications: gabapentin (NEURONTIN) 300 mg Capsule [RAO Alva] Preferred pharmacy: [id number] - [address] Delivery method: Pickup documented in this encounter Plan of Treatment Upcoming Encounters Date Type Specialty Care Team Description 04/11/2022 Office Visit Urology Parveen Gonzalez MD [facility] [address] [place], [place] [address] (Wo rk) documented as of this encounter Visit Diagnoses Not on filedocumented in this encounter Care Teams Tube Puller Relationship Specialty Start Date End Date None PCP - General 03/04/19 None documented as of this encounter
--- OUTSIDE RECORDS SUMMARY | 2022-02-05 18:04 | XMS_ITS | Encounter Summary ---
:1955 Author Organization [place] [address] Care Team Providers Name Role Phone None Primary Care Provider Unavailable Reason for Visit Reason Comments Follow-up Mri Lumbar Encounter Details Date Type Department Care Team Description 03/06/2019 Office Visit Pain and Spine Center Eloy Mo S/P lumbar discectomy; at [facility] Da Silva Acute right lumbar radiculopathy [facility] [address] [place], [place] [address] [phone] Social History Tobacco Use Types Packs/Day Years Used Date Never Smoker Smokeless Tobacco: Never Used Sex Assigned at Date Recorded Not on file documented as of this encounter Progress Notes Eloy Mo PA - 03/06/2019 10:20 AM EDT Apollo Ortiz was seen today in follow-up visit. I had last seen him earlier this week when he had issues of increasing low back pain with right leg radiation with a right L4 distribution, status posta prior right L3-L4 discectomy, performed in October 2018. He had an updated MRI performed today. Compared this to his MRI from November 2018. There is resolution of the prior caudal extruded disc material with extensive scarring at the right L3-L4 region. Currently there is no significant herniated disc or any concerning central canal lateral recess or foraminal stenosis at any level of the lumbar spine. Overall, the MRI from today is improved when compared to his prior MRI from November 2018, given resolution of the prior extruded disc at L3-L4. Assessment/plan: Apollo Ortiz was seen today in follow-up visit with regards to his increasing back pain and right leg pain. This appears to be a persistent right L4 radiculopathy fortunately without evidence of recurrent herniated disc or significant spinal stenosis that would be responsive to further spine surgery. We discussed further treatment as follows 1. Continue gabapentin and I told him he might need up to 2 weeks to notice effects of this medication as he has only been on it for 2 or 3 days so far. 2. For further pain management and to help his difficulty sleeping, I will have him start cyclobenzaprine 5 mg at bedtime. He has taken this medication before and tolerated it well. Otherwise, I will also have him start on oral prednisone taper beginning tomorrow morning. 3. He will proceed with physical therapy plan for next week. 4. If there is failure of all the above he will proceed to right L3-L4 transforaminal epidural subtle injection. documented in this encounter Plan of Treatment Upcoming Encounters Date Type Specialty Care Team Description 04/11/2022 Office Visit Urology Parveen Gonzalez MD [facility] ER UROLOGSteven [place], [place] [address] (Wo rk) documented as of this encounter Visit Diagnoses Diagnosis S/P lumbar discectomy Other postprocedural status Acute right lumbar radiculopathy Thoracic or lumbosacral neuritis or radi culitis, unspecified documented in this encounter Care Teams Grocery Specialist Relationship Specialty Start Date End Date None PCP - General 03/04/19 None documented as of this encounter
--- OUTSIDE RECORDS SUMMARY | 2022-02-05 18:04 | XMS_ITS | Encounter Summary ---
:1955 [place] [address] Care Team Providers Name Role Phone Unavailable Primary Care Provider Unavailable Encounter Details Date Type Department Care Team Description 12/12/2018 Ancillary [facility] [place] [address] [place] [address] [phone] (Wo rk) Social History Tobacco Use Types Packs/Day Years Used Date Never Assessed Sex Assigned at Date Recorded Not on file documented as of this encounter Plan of Treatment Upcoming Encounters Date Type Specialty Care Team Description 04/11/2022 Office Visit Urology Parveen Gonzalez MD [facility] ER UROLOGSteven [place], [place] [address] (Wo rk) documented as of this encounter Procedures Procedure Name Priority Date/Time Associated Diagnosis Comme nts FILM LIBRARY Routine 12/12/2018 12:00 AM Results for this STORAGE ONLY MR EDT procedure ar e in SPINE the results section. documented in this encounter Results Film Library- Storage Only MR Spine (12/12/2018 12:00 AM EDT) Specimen (Source) Anatomical Location Collection Method / Collectio n Time Received Time / Laterality Volume Narrative ALEX - 03/04/2019 2:26 PM EDT This exam is auto-finalizing. It's purpo se is for storage only. Johnson Ball SUPERVISOR MOLDING G FILM LIBRARY ORDERABLES Performing Organization Address City/State/ZIP Code Phon e Number [facility] [place], [place] documented in this encounter Visit Diagnoses Not on filedocumented in this encounter
--- OUTSIDE RECORDS SUMMARY | 2022-02-05 18:04 | XMS_ITS | Encounter Summary ---
:1955 Author Organization [facility] [place] [address] Care Team Providers Name Role Phone None Primary Care Provider Unavailable Reason for Visit Reason Comments Back, Buttock, Leg Pain Physical Therapy (Routine) - Specialty Diagnoses / Procedures Referred By Contact Refer red To Contact Physical Therapy Diagnoses S/P lumbar discectomy Acute right lumbar radiculopathy Eloy Mo PA [facility] [address] [place] [address] Phone: Referral ID Status Reason Start Date Expiration Date Visits V isits Requested Authorized [id number] Evaluate and 03/04/2019 03/03/2020 12 12 Treat Encounter Details Date Type Department Care Team Description 03/09/2019 [facility] Celena Mcclain [place] [facility] [place] to right [facility] [place] [address] Social History Tobacco Use Types Packs/Day Years Used Date Never Smoker Smokeless Tobacco: Never Used Sex Assigned at Date Recorded Not on file documented as of this encounter Progress Notes Celena Mcclain, PT - 03/09/2019 10:00 AM EDT PHYSICAL THERAPY INITIAL EXAMINATION Date of First Exam/ First Treatment: 03/09/2019 Referring Provider: RAO Eagle Diagnosis: 1. Low back pain radiating to right lower extremity 2. S/P L3-L4 laminectomy by Dr. Christophe Espinosa, on November 10, 2018, at the [facility]. Date of Onset: December 2018 Work Status and Occupation: Owns and manages a construction company; at work Apollo Ortiz was referred to [facility] for a physical therapy consult at the request of RAO Eagle. He was seen with the expectation to see if there is anything that can be done from an exercise perspective to ease the pain and improve his ability to function. History of Present Illness: Mr. Ortiz reports he originally injured his low back after shovel and June 2019. After failing conservative care he underwent a L3-L4 laminectomy on 11/10/2018. He notes that following surgery his leg symptoms resolved. Approximately a week later his right leg pain returned and then gradually worsened. A recent MRI of the lumbar spine did reveal some postsurgical changes but no other abnormalities. Past treatments since surgery directed to the low backhave included physical therapy, home traction, prednisone taper, gabapentin, and Flexeril. Fortunately, the pain has improved considerably since beginning to take gabapentin and prednisone. Mr. Ortiz currently complains of intermittent low back pain radiating to the right buttock and down the posterior aspect of the thigh to the knee. He reports some numbness in the lateral aspect of the right thigh and denies weakness. The pain is rated 0/10 at its least and 10/10 at its worst. Symptoms worsen when lying on the side, bending, sitting, and lifting. Symptoms ease when lying in the supine position, standing and walking. Sleep is disturbed but much less so since beginning to take medications. He denies a gait or balance disturbance. Mr. Ortiz's functional self care goal includes being able to sit without discomfort. Patient Active Problem List Diagnosis Code ??? Low back pain radiating to right lower extremity M54.5 : No past surgical history on file.: Social History: Mr. Ortiz is a man who lives in [place], [place]. He does not use tobacco, drinks alcohol in moderation and exercises regularly. He is currently walking 1.5 miles 2 times perday. Physical Exam: Mr. Ortiz is a very pleasant 64 y.o. male who moves about in the exam room without difficulties and appears very uncomfortable while sitting. Sitting posture is poor and standing is good. Examination of the lumbar spine in a standing position reveals a right of midline 1 inch scar at L3-L4 and normal spinal curves. Active range of motion of the lumbar spine is limited to 30 degreesflexion and 0 degrees extension. Gait is slow in pace but otherwise unremarkable. He is able to heel/toe walk and squat fully. Sciatic nerve tension test on the right is positive at 40 degrees. Sciaticnerve tension test on the left is negative at 60 degrees. No clear directional preference was found with repeated movement testing today. In fact, any movement away from midline appears to worsen his low back and right leg pain. Physical Therapy Assessment: Mr. Ortiz is a man with a history of residual low back and right leg pain since his lumbar laminectomy. The physical exam is significant for poor sitting posture, positive sciatic nerve tension test on the right, and no clear directional preference with movement testing. The history and exam is consistent with residual L4 radiculopathy. I believe that these deficits can improve with physical therapy treatments directed to the low back consisting of instruction in mechanical self-care, posture correction, and self mobilization exercises. Mr. Ortiz has a good rehabilitation potential and I anticipate to meet with him for 6-8 additional visits over the next 6-8 weeks. Treatment Plan: The natural history of healing following a discectomy and rational for exercise based treatment was reviewed. Mr. Ortiz was given a home exercise program consisting of slouched overcorrect exercise followed by sciatic nerve self mobilization in sitting 6 times per day. He was strongly encouraged to continue to gradually progress his walking program.. Along with the prescribed exercises, we discussed the principles of symptom self monitoring and posture correction of the sitting position. He will call with any questions, concerns, or if the pain worsens. Mr. Ortiz will return to [facility] for a follow up appointment in 1 weeks time with the hope that he is ready to pr ogress his home exercise program. Physical Therapy Goals in 4 weeks: 1. Independent with home exercise program 2. Able to sit without discomfort 3. Able to bend without discomfort The plan has been discussed with Apollo Ortiz and he has agreed with the planned treatment. Expectwith skilled physical therapy interventions he will be able to return to prior level of function. 55 minutes were spent interviewing, assessing, and instructing Apollo Parnigoni in a home exercise program. Clinical Presentation: Stable Evolving Unstable x Notes: The patient's clinical presentation is Evolving due to waxing and waning low back and right leg pain Clinical decision making of low complexity using standardized patient assessment instrument and measurable assessment of functional outcome. documented in this encounter Plan of Treatment Upcoming Encounters Date Type Specialty Care Team Description 04/11/2022 Office Visit Urology Parveen Gonzalez MD [facility] UROLOGSteven [place], [place] [address] (Wo rk) Scheduled Referrals Name Type Priority Associated Diagnoses Order S chedule Referral to Outpatient Referral Routine S/P lumbar d iscectomy Ordered: Physical Therapy Acute right lumbar 03/04 radiculopathy documented as of this encounter Visit Diagnoses Diagnosis Low back pain radiating to right lower e xtremity documented in this encounter Care Teams Project Designer Relationship Specialty Start Date End Date None PCP - General 03/04/19 None documented as of this encounter
--- OUTSIDE RECORDS SUMMARY | 2022-02-05 18:04 | XMS_ITS | Encounter Summary ---
:1955 Author Organization [facility] [address] Care Team Providers Name Role Phone None Primary Care Provider Unavailable Reason for Referral Physical Therapy (Routine) - Specialty Diagnoses / Procedures Referred By Contact Refer red To Contact Physical Therapy Diagnoses S/P lumbar discectomy Acute right lumbar radiculopathy Eloy Mo PA [facility] Spine Pt [facility] [place] [address] [place] [address] Phone: Referral ID Status Reason Start Date Expiration Date Visits V isits Requested Authorized [id number] Evaluate and 03/04/2019 03/03/2020 12 12 Treat iagnostic Test (Routine) - Closed Specialty Diagnoses / Procedures Referred By Contact Refer red To Contact Radiology Diagnoses S/P lumbar discectomy Acute right lumbar radiculopathy Eloy Mo PA [facility] Rad Mri Procedures MRI Lumbar [place] [address] [place] [address] Phone: Referral ID Status Reason Start Date Expiration Date Visits V isits Requested Authorized [id number] Closed Specialty 03/04/2019 03/03/2020 1 1 Service Requested Reason for Visit Reason Comments Back Pain Right Leg Pain Right Foot Pain numbness Encounter Details Date Type Department Care Team Description 03/04/2019 Office Visit [facility] Eloy Mo S/P lumbar discectomy; at [facility] RAO Da Silva Acute right lumbar radiculopathy [facility] MICHAEL Cortez MICHAEL Blanchard [address] [phone] Social History Tobacco Use Types Packs/Day Years Used Date Never Smoker Smokeless Tobacco: Never Used Sex Assigned at Date Recorded Not on file documented as of this encounter Last Filed Vital Signs Vital Sign Reading Time Taken Comments Blood Pressure 158/76 03/04/2019 3:00 PM EDT Pulse - - Temperature - - Respiratory Rate - - Oxygen Saturation - - Inhaled Oxygen Concentration - - Weight 108 kg (238 lb) 03/04/2019 3:00 PM EDT Height 193 cm (6' 4) 03/04/2019 3:00 PM EDT Body Mass Index 28.97 03/04/2019 3:00 PM EDT documented in this encounter Progress Notes Eloy Mo PA - 03/04/2019 3:00 PM EDT Apollo Ortiz is a 64-year-old gentleman I am seen today for progressive symptoms of low back pain with more significant pattern of right lower extremity pain and numbness. Codey tells me that he began with symptoms of back pain that later on radiated to his right lower extremity around June 2018. He ultimately underwent lumbar spine injections, and later on lumbar spine surgery, L3-L4 disc excision by Dr. Christophe Espinosa, on November 10, 2018, at the [facility]. Codey tells me that he did fairly well with that surgery but about a week after that operation, he developed back and right leg pain once more. The symptoms were tolerable for quite some time but over the past 8 weeks and especially over the past 2 weeks, he has gotten significantly worse. He finds itvery difficult to sit, drive a car, as well as bend over. He only feels better when he is standing or walking or changing position. Sleeping at night is quite a problem for him as well. Symptom location at present is over the right lumbar region, right posterior thigh, right calf, and the anterior ly along with numbness over his dorsal right foot. Regarding his treatments he did local physical therapy within the past 3 months for about 6 weeks but this did not really help him. He was also wearing a lumbar support also without benefit. Him and his are quite concerned about his symptoms as he is finding it very difficult to play golf and they have concerns about being able to manage her going to the trip in [facility] on April. Objective: On examination today this is a pleasant well-built 64-year-old gentleman. His incision site over theright paramedian region over his low back is benign and well-healed. He ambulates with an antalgic gait and is seen standing in the exam room and pacing [id number]. He is able to bend forward about40 degrees and extends no more than 15 degrees. His motor examination shows full strength. His sensory exam is intact to light touch. His reflexes are +2 at both knees and both ankles. He has a positive straight leg raise on the right side producing pain over his right buttock and calf, negative crossstraight leg raise. Painless hip range of motion. Palpable peripheral pulses. Imaging: I went over his most recent MRI performed in December 12, 2018. This imaging study was performed with andwithout contrast. There is evidence of postoperative change of the right L3-L4 region, and there is a combination of rim-enhancing granulation tissue, consistent with postoperative scarring from his recent spine surgery and there is a very small central component of recurrent herniated disc centrally. I am not seeing any evidence for significant central canal stenosis and the other levels and I am not seeing evidence for significant lateral recess or foraminal stenosis or herniated disc on the otherlumbar levels. Assessment/plan: Apollo Ortiz is a 64-year-old gentleman seen today for chief complaint of recurrent back pain withsignificant radiating right lower extremity pain with symptoms in the right L4 distribution. This status post L3-L4 discectomy performed about 4 months ago now with worsening symptoms over the past 2 months and especially over the past 2 weeks. Clinical concern at present is further progression of the recurrent herniated disc which may be amenable to potential spine surgery if not a lumbar epidural steroidal injection. To assess this, he will undergo an updated lumbar spine MRI with and without contrast, and follow-upwith myself subsequently. To manage his pain in the interim I will have him start with [facility] trained spine physical therapist with our spine center, and he will also begin gabapentin 300 mg at bedtime working to take this up to 3 times per day with 300 mg in the morning, 300 mg at noon, and 600 mg at bedtime. I advised him and his about potential side effects of sedation, grogginess, and lower extremityswelling and weight gain with this medication. documented in this encounter Plan of Treatment Upcoming Encounters Date Type Specialty Care Team Description 04/11/2022 Office Visit Urology Parveen Gonzalez MD [facility] [address] [place] [address] (Wo rk) Scheduled Referrals Name Type Priority Associated Diagnoses Order S chedule Referral to Outpatient Referral Routine S/P lumbar d iscectomy Ordered: Physical Therapy Acute right lumbar 03/04 radiculopathy documented as of this encounter Results MRI Lumbar Spine wwo [...] this report, please contact e number below. ? Electronically signed by: Erin Rivera [facility] ([phone]), at 03/06/2019 11:18 AM Narrative 03/06/2019 11:18 AM EDT EXAMINATION: MRI [...] narrowing. Procedure Note Lico Enriquez MD - 03/06/2019Formattin g of this note might be different [...] this report, please contact e number below. Electronically signed by: Erin Rivera [facility] ([phone]), at 03/06/2019 11:18 AM Yoel Noland MD IMG MRI ORDERABLES documented in this encounter Visit Diagnoses Diagnosis S/P lumbar discectomy Other postprocedural status Acute right lumbar radiculopathy Thoracic or lumbosacral neuritis or radi culitis, unspecified S/P lumbar discectomy Other postprocedural status Acute right lumbar radiculopathy Thoracic or lumbosacral neuritis or radi culitis, unspecified documented in this encounter Care Teams Surg Tech Relationship Specialty Start Date End Date None PCP - General 03/04/19 None documented as of this encounter
== END 2022-02-05 17:58 | disposition home or self-care (01) ==
LOC: NCHCN 17:57
PROVIDERS: PCP Physician Assistant Surgical; Visit Provider Nurse Practitioner Family
DX: Z13.220 Encounter for screening for lipoid disorders (principal); Z00.00 Encounter for general adult medical examination without abnormal findings
CPT/HCPCS: 80053; 80061

== ENCOUNTER 2022-03-09 08:40 | Outpatient (REF) | payer MEDICARE, SELFPAY ==
[2022-03-09 16:22] LABS: ALT 27 U/L (16-63); AST 23 U/L (15-37); Albumin 3.9 g/dL (3.4-5.0); Alkaline Phosphatase 59 U/L (46-116); Anion Gap 7.9 mmol/L (3-11); BUN 13 mg/dL (7-18); Bilirubin, Total 0.5 mg/dL (0.2-1.0); CO2 29.1 mmol/L (21.0-32.0); CREATININE 0.8 mg/dL (0.70-1.30); Calcium 8.8 mg/dL (8.5-10.1); Calculated LDL 104 mg/dL (<100); Chloride 104 mmol/L (98-107); Cholesterol 183 mg/dL (<200); Glucose 106 mg/dL (74-106); HDL Cholesterol 58 mg/dL (40-60); Potassium 4.5 mmol/L (3.5-5.1); Sodium 141 mmol/L (136-145); Total Protein 7.3 g/dL (6.4-8.2); Triglyceride 109 mg/dL (<150)
== END 2022-03-09 08:41 | disposition home or self-care (01) ==
LOC: NCHCN 08:40
PROVIDERS: PCP Physician Assistant Surgical; Visit Provider Nurse Practitioner Family
DX: I10 Essential (primary) hypertension (principal); E78.5 Hyperlipidemia, unspecified
CPT/HCPCS: 80053; 80061